=== PATIENT | female | born 1995 | race Hispanic/Latino ===

== ENCOUNTER 2024-05-24 09:34 | Emergency (ER) | payer OTHER ==
[~2024-05-24] VITALS: Ht 152.4 cm; Wt 109.0 kg
[2024-05-24 09:37] VITALS: PULSE 79; RESP 16; TEMP 97.4
[2024-05-24] MEDS ORDERED: CLONIDINE HCL0.1 MG PO (09:49)
[2024-05-24] MEDS: ONDANSETRON HCL INJ 2MG/ML 2ML 2 MG/ML VIAL IV STA (10:00)
[2024-05-24] MEDS ORDERED: DONNATAL/LIDOCAINE/MAALOX 30 ML SUSP PO SCH (10:00)
[2024-05-24] MEDS: SODIUM CHLORIDE 0.9% 1000ML 1,000 ML IV ONE (10:01)
[2024-05-24] MEDS: Morphine 4mg INJECTION 4 MG/ML INJ IV ONE (10:01)
[2024-05-24] MEDS ORDERED: IOPAMIDOL 370 MG/ML 100 ML INFUS..BTL INJ ONE (10:14)
[2024-05-24] MEDS ORDERED: ONDANSETRON ODT4 MG PO (11:29)
[2024-05-24 11:48] VITALS: BP 125/87; PULSE 62; RESP 18; TEMP 97.7; O2SAT 97
== END 2024-05-24 11:45 | disposition home or self-care (01) ==
LOC: FSED 09:36
DX: R10.13 Epigastric pain (principal); R31.9 Hematuria, unspecified; E86.0 Dehydration; R11.0 Nausea; K76.0 Fatty (change of) liver, not elsewhere classified; E66.9 Obesity, unspecified; R94.31 Abnormal electrocardiogram [ECG] [EKG]
CPT/HCPCS: 74177; 76705; 80048; 80076; 81003; 81025; 85025; 93005; 99283; J2270; J2405; J7030; Q9967